=== PATIENT | female | born 1975 | race Caucasian/White ===

== ENCOUNTER 2019-02-20 10:32 | Day surgery (SDC) | payer OTHER ==
[~2019-02-20 10:32] MED LIST: CEFAZOLIN 2 GM/50 ML (PMX) 50 ML IVPB; SOD CHLORIDE 0.9% 1,000 ML IV
[2019-02-20 11:20] LABS: ADD MAN DIFF? NO
[2019-02-20 11:23] LABS: BASOPHIL # 0.1 10^3/ul (0.0-0.1); BASOPHILS % 1.8 % (0.0-2.0); EOSINOPHILS # 0.1 10^3/ul (0.0-0.5); EOSINOPHILS % 2.2 % (0.0-7.0); HEMATOCRIT 37.4 % (37.0-47.0); HEMOGLOBIN 11.7 g/dl (12.0-16.0); LYMPHOCYTES # 2.1 10^3/ul (0.8-2.9); LYMPHOCYTES % 42.4 % (15.0-51.0); MEAN CORPUSCULAR HGB CONC 31.3 g/dl (32.0-37.0); MEAN CORPUSCULAR VOLUME 76.6 fl (82.0-101.0); MEAN PLATELET VOLUME 11.1 fl (7.4-10.4); MONOCYTE # 0.5 10^3/ul (0.3-0.9); MONOCYTES % 9.4 % (0.0-11.0); NEUTROPHIL # 2.2 10^3/ul (1.6-7.5); NEUTROPHILS % 44.2 % (39.0-77.0); PLATELET COUNT 351 10^3/UL (140-415); RED BLOOD COUNT 4.88 10^6/ul (4.20-5.40); RED CELL DISTRIBUTION WIDTH 16.2 % (11.5-14.5)
[2019-02-20 11:48] LABS: ALANINE AMINOTRANSFERASE 17 IU/L (13-69); ALBUMIN 4.1 g/dl (3.3-4.9); ALBUMIN/GLOBULIN RATIO 1.07; ALKALINE PHOSPHATASE 87 IU/L (42-121); ANION GAP 8 (5-13); ASPARTATE AMINO TRANSFERASE 20 IU/L (15-46); BILIRUBIN,INDIRECT 0.5 mg/dl (0-1.1); BILIRUBIN,TOTAL 0.5 mg/dl (0.2-1.3); BLOOD UREA NITROGEN 15 mg/dl (7-20); CALCIUM 8.9 mg/dl (8.4-10.2); CARBON DIOXIDE 26 mmol/L (21-31); CHLORIDE 107 mmol/L (97-110); CREATININE 0.67 mg/dl (0.44-1.00); Estimated GFR > 60 mL/min (>60); GLUCOSE 96 mg/dl (70-220); INR 0.92; POTASSIUM 4.1 mmol/L (3.5-5.1); PROTIME 12.5 Sec (11.9-14.9); SODIUM 141 mmol/L (135-144); TOTAL PROTEIN 7.9 g/dl (6.1-8.1)
[2019-02-20 11:50] LABS: PARTIAL THROMBOPLASTIN TIME 24.2 Sec (23.0-35.0)
[2019-02-20] MEDS ORDERED: PROPOFOL 20 ML (14:09)
[2019-02-20] MEDS ORDERED: ONDANSETRON 4 MG INJ (14:14)
[2019-02-20] MEDS ORDERED: ROCURONIUM 50 MG INJ (14:14)
[2019-02-20] MEDS ORDERED: DEXAMETHASONE 4 MG/ML 5 ML INJ (14:14)
[2019-02-20] MEDS ORDERED: CEFAZOLIN 1 GM INJ (14:14)
[2019-02-20] MEDS ORDERED: LIDOCAINE 2% (SDV) 5 ML INJ (14:14)
[2019-02-20] MEDS: BUPIVACAINE 0.25% (MPF) 30 ML INJ (14:34)
[2019-02-20] MEDS: POLYMYXIN/BACITRACIN 1L IRRIG (14:34)
[2019-02-20] MEDS ORDERED: GLYCOPYRROLATE 0.4 MG INJ (14:54)
[2019-02-20] MEDS ORDERED: NEOSTIGMINE 3 MG/3 ML SYRINGE (14:54)
[2019-02-20] MEDS: KETOROLAC 30 MG INJ IV (15:17)
[2019-02-20] MEDS: METOCLOPRAMIDE 10 MG INJ IV (15:17)
[2019-02-20] MEDS: HYDROmorphONE 1 MG/5 ML IV SYRINGE IV ×2 (15:18→15:23)
[2019-02-20] MEDS ORDERED: EPHEDrine 25 MG/5 ML SYG IV (15:30)
[2019-02-20] MEDS ORDERED: hydrALAzine 20 MG INJ IV (15:30)
[2019-02-20] MEDS ORDERED: HYDROCODONE/APAP (5/325) TAB PO (15:30)
[2019-02-20] MEDS ORDERED: LABETALOL HCL 20MG INJ IV (15:30)
[2019-02-20] MEDS ORDERED: FENTAnyl 50 MCG/ML VIAL IV ×3 (15:30)
[2019-02-20] MEDS ORDERED: MEPERIDINE 25 MG INJ IV (15:30)
[2019-02-20] MEDS ORDERED: OXYCODONE/ACETAMINOPHEN (5/325) TAB PO ×2 (15:30)
[2019-02-20] MEDS ORDERED: DIPHENHYDRAMINE 50 MG INJ IV (15:30)
[2019-02-20] MEDS ORDERED: HYDROmorphONE 1 MG/5 ML IV SYRINGE IV (15:30)
[2019-02-20] MEDS ORDERED: ALBUTEROL 0.083% (NEB) 2.5 MG/3 ML AMP HHN (15:30)
[2019-02-20] MEDS ORDERED: ONDANSETRON 4 MG INJ IV (15:30)
== END 2019-02-20 18:50 | disposition home or self-care (01) ==
LOC: SDS 10:32
DX: K40.30 Unilateral inguinal hernia, with obstruction, without gangrene, not specified as recurrent (principal)
CPT/HCPCS: 49507; 80053; 84703; 85025; 85610; 85730